=== PATIENT | female | born 1990 | race Caucasian/White ===

== ENCOUNTER 2023-08-16 19:50 | Inpatient (IN) | payer MEDICAID ==
[~2023-08-16] VITALS: Ht 165.1 cm; Wt 72.0 kg
[2023-08-16 21:19] LABS: BASOPHILS # (AUTO) 0.2 X10'3 (0-0.2); BASOPHILS % (AUTO) 1.7 % (0-1); EOSINOPHILS # (AUTO) 0.1 X10'3 (0-0.9); EOSINOPHILS % (AUTO) 0.5 % (0-6); HEMATOCRIT 31.5 % (35.0-45.0); HEMOGLOBIN 10.5 g/dl (12.0-16.0); LYMPHOCYTES % (AUTO) 9.7 % (21-51); MEAN CORPUSCULAR HEMOGLOBIN 29.3 PG (27.0-31.0); MEAN CORPUSCULAR HGB CONC 33.3 g/dL (33.0-36.5); MEAN CORPUSCULAR VOLUME 88.1 FL (78-98); MEAN PLATELET VOLUME 7.2 FL (7.4-10.4); MONOCYTES % (AUTO) 9.8 % (2-12); NEUTROPHILS # (AUTO) 8.1 X10'3 (1.8-7.7); NEUTROPHILS % (AUTO) 78.3 % (42-75); PLATELET COUNT 464 X10'3 (140-440); RED BLOOD COUNT 3.58 X10'6 (4.20-5.60); RED CELL DISTRIBUTION WIDTH 14.7 % (11.5-14.5); WHITE BLOOD COUNT 10.4 X10'3 (4.5-11.0)
[2023-08-16 21:26] LABS: ALANINE AMINOTRANSFERASE 42 U/L (12-78); ALBUMIN 3.3 G/DL (3.4-5.0); ALKALINE PHOSPHATASE 42 IU/L (46-116); ANION GAP 12 (8-16); ASPARTATE AMINO TRANSFERASE 10 U/L (10-37); BILIRUBIN,TOTAL 0.9 MG/DL (0.1-1.0); BLOOD UREA NITROGEN 10 MG/DL (7-18); BUN/CREATININE RATIO 14.5 (10.0-20.0); CALCIUM 8.3 MG/DL (8.5-10.1); CHLORIDE 103 MMOL/L (99-107); CREATININE 0.69 MG/DL (0.40-0.90); GLUCOSE 84 MG/DL (70-104); LIPASE 50 U/L (16-77); POTASSIUM 3.4 MMOL/L (3.5-5.1); SODIUM 140 MMOL/L (135-145); TOTAL CARBON DIOXIDE 25.2 MMOL/L (24-32); TOTAL PROTEIN 6.6 G/DL (6.4-8.2); eCRCL 83 ML/MIN; eGFR > 90 ML/MIN
[2023-08-16] MEDS: ondansetron/PF 4mg/2ml inj IV ONE (21:26)
[2023-08-16] MEDS: HYDROmorphone 1 mg/ml syringe IV ONE (21:27)
[2023-08-16] MEDS ORDERED: iohexol 300mg/ml 100ml inj. ONE (21:47)
[2023-08-16] MEDS ORDERED: potassium Cl 20 mEq SR tablet PO PRN (22:30)
[2023-08-16] MEDS ORDERED: acetaminophen 650mg rectal suppository RC PRN (22:30)
[2023-08-16] MEDS ORDERED: magnesium 4gm in 100ml NS 100 ML IV PRN (22:30)
[2023-08-16] MEDS ORDERED: magnesium Cl slow-release 64mg tablet PO PRN (22:30)
[2023-08-16] MEDS ORDERED: ondansetron 4mg rapidly disintigrating tab PO PRN (22:30)
[2023-08-16] MEDS ORDERED: magnesium 2GM in 50ml NS 50 ML IV PRN (22:30)
[2023-08-16] MEDS ORDERED: mag hydrox/Alum hydrox/simeth 30ml oral suspension PO PRN (22:30)
[2023-08-16] MEDS ORDERED: magnesium hydroxide 30ml (MOM) UD suspension PO PRN (22:30)
[2023-08-16] MEDS ORDERED: HYDROcodone/acetaminophen 5mg/325mg tablet PO PRN (22:30)
[2023-08-16] MEDS ORDERED: acetaminophen 325mg tablet PO PRN ×2 (22:30)
[2023-08-16 23:03] LABS: APTT 27 SECONDS (22-32); INR 1.1 INR; MAGNESIUM 1.9 MG/DL (1.5-2.4); PHOSPHORUS 3.5 MG/DL (2.3-4.5); PROTHROMBIN TIME 12.2 SECONDS (9.0-12.0)
[2023-08-16] MEDS: normal saline 1000ml 1,000 ML IV SCH (23:36)
[2023-08-17] VITALS (8 sets, daily range): BP systolic 120–155; BP diastolic 67–97; PULSE 59–68; RESP 14–20; TEMP 97.5–98.6; O2SAT 97–100
[2023-08-17] MEDS ORDERED: NO HOME MEDS (01:11)
[2023-08-17] MEDS: morphine 2 MG/ML inj. syringe IV PRN ×2 (01:32→07:15)
[2023-08-17] MEDS: HYDROcodone/acetaminophen 10/325mg tab PO PRN (02:07)
[2023-08-17] MEDS: potassium Cl 20 mEq SR tablet PO PRN (02:08)
[2023-08-17] MEDS: metoclopramide 5 mg/ml inj IV PRN (02:09)
[2023-08-17] MEDS: potassium Cl 40MEQ/1/2NS 520ml 520 ML IV PRN (03:55)
[2023-08-17] MEDS ORDERED: proCHLORperazine 10 MG/2 ml inj IV PRN (04:30)
[2023-08-17] MEDS ORDERED: PROC10TA97 PO (04:36)
[2023-08-17] MEDS ORDERED: ONDA-103 PO (04:36)
[2023-08-17] MEDS ORDERED: HYDR-3964 PO (04:36)
[2023-08-17 07:06] LABS: BASOPHILS % (AUTO) 0.3 % (0-1); EOSINOPHILS # (AUTO) 0.1 X10'3 (0-0.9); EOSINOPHILS % (AUTO) 1.2 % (0-6); HEMATOCRIT 29.6 % (35.0-45.0); HEMOGLOBIN 10.2 g/dl (12.0-16.0); LYMPHOCYTES # (AUTO) 1.2 X10'3 (1.1-4.8); LYMPHOCYTES % (AUTO) 11.5 % (21-51); MEAN CORPUSCULAR HEMOGLOBIN 29.9 PG (27.0-31.0); MEAN CORPUSCULAR HGB CONC 34.3 g/dL (33.0-36.5); MEAN CORPUSCULAR VOLUME 87.4 FL (78-98); MEAN PLATELET VOLUME 7.4 FL (7.4-10.4); MONOCYTES # (AUTO) 0.9 X10'3 (0-0.9); MONOCYTES % (AUTO) 8.7 % (2-12); NEUTROPHILS # (AUTO) 8.2 X10'3 (1.8-7.7); NEUTROPHILS % (AUTO) 78.3 % (42-75); PLATELET COUNT 413 X10'3 (140-440); RED BLOOD COUNT 3.39 X10'6 (4.20-5.60); RED CELL DISTRIBUTION WIDTH 14.7 % (11.5-14.5); WHITE BLOOD COUNT 10.5 X10'3 (4.5-11.0)
[2023-08-17] MEDS: ondansetron/PF 4mg/2ml inj IV PRN (07:13)
[2023-08-17 07:18] LABS: ALANINE AMINOTRANSFERASE 35 U/L (12-78); ALBUMIN 2.8 G/DL (3.4-5.0); ALBUMIN/GLOBULIN RATIO 0.9 (1.1-1.5); ALKALINE PHOSPHATASE 36 IU/L (46-116); ANION GAP 13 (8-16); ASPARTATE AMINO TRANSFERASE 18 U/L (10-37); BILIRUBIN,TOTAL 0.7 MG/DL (0.1-1.0); BLOOD UREA NITROGEN 9 MG/DL (7-18); BUN/CREATININE RATIO 15.3 (10.0-20.0); CALCIUM 7.8 MG/DL (8.5-10.1); CHLORIDE 105 MMOL/L (99-107); CHOL/HDL RATIO 2.8 (0.00-4.99); CHOLESTEROL 70 MG/DL (0-200); CREATININE 0.59 MG/DL (0.40-0.90); GLUCOSE 75 MG/DL (70-104); HDL CHOLESTEROL 25 MG/DL (35-60); LDL CHOLESTEROL 37 MG/DL (50-100); PHOSPHORUS 3.5 MG/DL (2.3-4.5); POTASSIUM 3.9 MMOL/L (3.5-5.1); SODIUM 136 MMOL/L (135-145); TOTAL CARBON DIOXIDE 17.6 MMOL/L (24-32); TRIGLYCERIDES 65 MG/DL (20-135); eCRCL 121 ML/MIN; eGFR > 90 ML/MIN
[2023-08-17 07:22] LABS: HCG SERUM QL NEGATIVE
[2023-08-17] MEDS: K and/or MAG REPLACEMENT MC SCH (08:43)
[2023-08-17] MEDS: pantoprazole 40MG/NS 100ML BAG 100 ML IV SCH (10:39)
[2023-08-17] MEDS: metoclopramide 5 mg/ml inj IV SCH (11:59)
[2023-08-17] MEDS: enoxaparin 30mg/0.3ml syringe SUBCUT SCH (20:16)
[2023-08-18 06:00] VITALS: BP 129/66; PULSE 55; RESP 16; TEMP 98; O2SAT 100
[2023-08-18 07:33] LABS: BASOPHILS % (AUTO) 0.2 % (0-1); EOSINOPHILS # (AUTO) 0.2 X10'3 (0-0.9); EOSINOPHILS % (AUTO) 2.5 % (0-6); LYMPHOCYTES # (AUTO) 0.9 X10'3 (1.1-4.8); LYMPHOCYTES % (AUTO) 11.6 % (21-51); MEAN CORPUSCULAR HEMOGLOBIN 29.5 PG (27.0-31.0); MEAN CORPUSCULAR HGB CONC 33.4 g/dL (33.0-36.5); MEAN CORPUSCULAR VOLUME 88.2 FL (78-98); MEAN PLATELET VOLUME 7.4 FL (7.4-10.4); MONOCYTES # (AUTO) 0.5 X10'3 (0-0.9); MONOCYTES % (AUTO) 5.9 % (2-12); NEUTROPHILS # (AUTO) 6.5 X10'3 (1.8-7.7); NEUTROPHILS % (AUTO) 79.8 % (42-75); PLATELET COUNT 475 X10'3 (140-440); RED BLOOD COUNT 3.74 X10'6 (4.20-5.60); WHITE BLOOD COUNT 8.2 X10'3 (4.5-11.0)
[2023-08-18 07:42] LABS: ALANINE AMINOTRANSFERASE 36 U/L (12-78); ALBUMIN 3.5 G/DL (3.4-5.0); ALKALINE PHOSPHATASE 44 IU/L (46-116); ANION GAP 16 (8-16); ASPARTATE AMINO TRANSFERASE 14 U/L (10-37); BILIRUBIN,TOTAL 0.9 MG/DL (0.1-1.0); BLOOD UREA NITROGEN 7 MG/DL (7-18); BUN/CREATININE RATIO 9.6 (10.0-20.0); CALCIUM 8.1 MG/DL (8.5-10.1); CHLORIDE 103 MMOL/L (99-107); CREATININE 0.73 MG/DL (0.40-0.90); GLUCOSE 68 MG/DL (70-104); MAGNESIUM 1.9 MG/DL (1.5-2.4); PHOSPHORUS 3.3 MG/DL (2.3-4.5); SODIUM 139 MMOL/L (135-145); TOTAL CARBON DIOXIDE 20.2 MMOL/L (24-32); TOTAL PROTEIN 7.1 G/DL (6.4-8.2); eCRCL 98 ML/MIN; eGFR > 90 ML/MIN
[2023-08-18] MEDS ORDERED: MULT-25 PO (09:50)
[2023-08-18] MEDS ORDERED: LACT1CAP60 PO (09:50)
[2023-08-18] MEDS ORDERED: METO-292 PO (09:50)
== END 2023-08-18 10:20 | disposition home or self-care (01) | DRG 282 ==
LOC: ER 19:50 → ED HOLD 22:33 → ORTHO 4S 08-17 01:46
PROVIDERS: ADMIT Internal Medicine Critical Care Medicine; ATTEND Internal Medicine
PROC: BW21ZZZ Computerized Tomography (CT Scan) of Abdomen and Pelvis (ICD-10-PCS; principal; 2023-08-16)
DX: K85.90 Acute pancreatitis without necrosis or infection, unspecified (principal); K56.0 Paralytic ileus; K86.89 Other specified diseases of pancreas; Z90.49 Acquired absence of other specified parts of digestive tract; Z88.8 Allergy status to other drugs, medicaments and biological substances
CPT/HCPCS: 36415; 74178; 74181; 80053; 80061; 83690; 83735; 84100; 84703; 85025; 85610; 85730; 87081; 96374; 96375; 99285; C9113; G0378; J1170; J1650; J2270; J2405; J2765; J3480; J7030; Q9967